=== PATIENT | female | born 1960 | race Two or more races ===

== ENCOUNTER 2017-10-15 18:31 | Inpatient (IN) | payer OTHER ==
[~2017-10-15] VITALS: Ht 149.9 cm; Wt 72.6 kg
[2017-10-15] MEDS ORDERED: NORCO 5-325 TA1 EACH ORAL (18:56)
[2017-10-15] MEDS ORDERED: COL-RITE100 MG PO (18:56)
[2017-10-15] MEDS ORDERED: CEPHALEXIN500 M1 ORAL (18:56)
[2017-10-15 19:00] VITALS: BP 108/64
[2017-10-15] MEDS ORDERED: Morphine Sulfate 4mg/ml Inj IVP ONE (19:00)
[2017-10-15] MEDS ORDERED: Ketorolac 30mg Inj IV ONE (19:00)
[2017-10-15 19:44] LABS: ANION GAP 7 mmol/L (5-15); BLOOD UREA NITROGEN 9 mg/dL (7-18); CALCIUM 8.2 MG/DL (8.5-10.1); CARBON DIOXIDE 27 MMOL/L (21-32); CHLORIDE 106 MMOL/L (98-107); CREATININE 0.7 MG/DL (0.55-1.30); POTASSIUM 3.1 MMOL/L (3.5-5.1); SODIUM 140 MMOL/L (136-145)
[2017-10-15 19:49] LABS: ALANINE AMINOTRANSFERASE 23 U/L (12-78); ALBUMIN/GLOBULIN RATIO 0.9 (1.0-2.7); ALKALINE PHOSPHATASE 74 U/L (46-116); ASPARTATE AMINO TRANSFERASE 25 U/L (15-37); BILIRUBIN,TOTAL 0.5 MG/DL (0.2-1.0)
[2017-10-15 19:58] VITALS: BP 104/68
[2017-10-15 20:10] LABS: BASOPHILS % (AUTO) 0.7 % (0.0-2.0); EOSINOPHILS % (AUTO) 0.5 % (0.0-3.0); HEMATOCRIT 28.8 % (37.0-47.0); HEMOGLOBIN 9.7 G/DL (12.0-16.0); MEAN CORPUSCULAR VOLUME 84 FL (80-99); MONOCYTES % (AUTO) 6.7 % (1.0-10.0); PLATELET COUNT 202 K/UL (150-450); RED BLOOD COUNT 3.45 M/UL (4.20-5.40); RED CELL DISTRIBUTION WIDTH 12.5 % (11.6-14.8); WHITE BLOOD COUNT 8.3 K/UL (4.8-10.8)
[2017-10-15 20:18] LABS: INR 1.1 (0.9-1.1)
--- NOTE | 2017-10-15 20:26 | Diagnostic Imaging Report ---
ADDENDUM - Added by Yair Fiscehr MD on 10/15/2017 8:31 PM (-07:00) Discussion with the ordering provider revealed that the patient had recent spinal surgery, given this history and in the absence of systemic more visible infection, this subcutaneous fluid collection could be considered normal postoperative appearance. EXAM: CT Lumbar Spine Without Intravenous Contrast CLINICAL HISTORY: PAIN TECHNIQUE: Axial computed tomography images of the lumbar spine without intravenous contrast. CTDI is 15.89 mGy and DLP is 413.25 mGy-cm. One or more of the following dose reduction techniques were used: automated exposure control, adjustment of the mA and/or kV according to patient size, use of iterative reconstruction technique. COMPARISON: No relevant prior studies available. FINDINGS: Vertebrae: Bilateral L5-S1 posterior stabilization with interbody spacer, no complication. Posterior L4 right hemilaminectomy and posterior L5 bilateral laminectomy. No acute fracture. Discs/spinal canal/neural foramina: Unremarkable limited evaluation of the spinal canal. No significant osseous spinal canal or foraminal stenosis. Soft tissues: Subcutaneous soft tissue midline ill-defined fluid collection with multiple focal internal gas extending from T12-L5. No surgical harry seen in the skin that would suggest this is an immediate postoperative study. No osseous destructive findings. Other findings: Unremarkable visualized abdominopelvic viscera. IMPRESSION: 1. L5-S1 stabilization hardware without complication and posterior decompressions as above. 2. Subcutaneous fluid collection in the midline described above with foci of gas, this could represent an infected fluid collection. Correlate with clinical presentation, particularly given the absence of immediate postoperative findings, and consider aspiration. 3. Unremarkable limited evaluation of the spinal canal, if there is concern for spinal canal pathology recommend MRI. [employer] 10/15/17 20:28 Call Doctor Regarding Other, called Dr Barraza on 10/15 20:28 (-07:00)
--- NOTE | 2017-10-15 21:22 | Emergency Room Report ---
History of Present Illness General Chief Complaint: Lower Back Pain or Injury Source: Patient Present Illness HPI Patient is 2 days status post fusion and stabilization of the lower back. She was riding in a car today and had severe low back pain that was not relieved by any measures. When she is not moving about she states the pain is better. She' s been taking Garrett to control the pain. She denies any incontinence, saddle numbness. There is some weakness and numbness down the left leg that is chronic prior to the surgery is not worsened at this time. No fevers, chills. Headache. + Nausea and poor appetite. No vomiting. No dysuria, hematuria. Allergies: Coded Allergies: No Known Allergies (Unverified , 10/15/17) Patient History Past Medical History: see triage record Social History: Denies: smoking, alcohol use Social History Narrative with her daughter Reviewed Nursing Documentation: PMH: Agreed; PSxH: Agreed Nursing Documentation-PMH Past Medical History: No History, Except For Review of Systems All Other Systems: negative except mentioned in HPI Physical Exam Vital Signs Date Time Temp Pulse Resp B/P (MAP) Pulse Ox O2 Delivery O2 Flow Rate FiO2 10/15/17 18:41 99.6 75 18 100/62 94 Room Air 99.7 Sp02 EP Interpretation: reviewed, normal General Appearance: well appearing, no apparent distress, GCS 15 Head: normocephalic, atraumatic Eyes: bilateral eye normal inspection, bilateral eye PERRL ENT: moist mucus membranes Neck: supple Respiratory: lungs clear, normal breath sounds Cardiovascular #1: regular rate, rhythm Cardiovascular #2: 2+ radial (R) Gastrointestinal: normal inspection, normal bowel sounds, non tender, no mass, non-distended Musculoskeletal: other - back brace in place, walks with limp L weak - TTP near area of operation Neurologic: alert, oriented x3, bellman III-XII nml as tested, DTRs symmetric, sensory intact, cerebellar normal, speech normal, motor weakness - L leg, but near normal Psychiatric: depressed affect Skin: normal color, other - surgical scar Medical Decision Making Diagnostic Impression: Primary Impression: Intractable back pain Additional Impression: Status post spinal surgery ER Course Patient presents with increased back pain after spinal surgery. Differential includes hematoma, infection, readjustment of surgical hardware, strain, contusion amongst others. Evaluation will be with EKG, labs, CT of the back. The patient will be treated with IV hydration and also analgesia. EKG without injury. Labs unremarkable. CT of back with air/edema, no hematoma. Difficult to evaluate CT with recent surgery. Possible infection. Patient is somewhat improved but with movement she still has significant pain. The patient is admitted to the hospital. She was discussed with Dr. Chen who agrees with admission. Laboratory Tests Test 10/15/17 19:23 White Blood Count 8.3 K/UL (4.8-10.8) Red Blood Count 3.45 M/UL (4.20-5.40) L Hemoglobin 9.7 G/DL (12.0-16.0) L Hematocrit 28.8 % (37.0-47.0) L Mean Corpuscular Volume 84 FL (80-99) Mean Corpuscular Hemoglobin 28.2 PG (27.0-31.0) Mean Corpuscular Hemoglobin Concent 33.7 G/DL (32.0-36.0) Red Cell Distribution Width 12.5 % (11.6-14.8) Platelet Count 202 K/UL (150-450) Mean Platelet Volume 6.1 FL (6.5-10.1) L Neutrophils (%) (Auto) 72.0 % (45.0-75.0) Lymphocytes (%) (Auto) 20.0 % (20.0-45.0) Monocytes (%) (Auto) 6.7 % (1.0-10.0) Eosinophils (%) (Auto) 0.5 % (0.0-3.0) Basophils (%) (Auto) 0.7 % (0.0-2.0) Prothrombin Time 11.3 SEC (9.30-11.50) Prothrombin Time INR 1.1 (0.9-1.1) PTT 32 SEC (23-33) Sodium Level 140 MMOL/L (136-145) Potassium Level 3.1 MMOL/L (3.5-5.1) L Chloride Level 106 MMOL/L (98-107) Carbon Dioxide Level 27 MMOL/L (21-32) Anion Gap 7 mmol/L (5-15) Blood Urea Nitrogen 9 mg/dL (7-18) Creatinine 0.7 MG/DL (0.55-1.30) Estimate Glomerular Filtration Rate > 60 mL/min (>60) Glucose Level 122 MG/DL (74-106) H Calcium Level 8.2 MG/DL (8.5-10.1) L Total Bilirubin 0.5 MG/DL (0.2-1.0) Aspartate Amino Transferase (AST) 25 U/L (15-37) Alanine Aminotransferase (ALT) 23 U/L (12-78) Alkaline Phosphatase 74 U/L (46-116) Total Protein 6.5 G/DL (6.4-8.2) Albumin 3.0 G/DL (3.4-5.0) L Globulin 3.5 g/dL Albumin/Globulin Ratio 0.9 (1.0-2.7) L EKG Diagnostic Results Rate: normal Rhythm: NSR ST Segments: no acute changes Rhythm Strip Diag. Results EP Interpretation: yes Rhythm: NSR, no PVC's, no ectopy CT/MRI/US Diagnostic Results CT/MRI/US Diagnostic Results : Imaging Test Ordered: lumbar spine Impression Postsurgical changes. There are and edema. No hematoma seen. Cannot exclude infectious etiology. Last Vital Signs Date Time Temp Pulse Resp B/P (MAP) Pulse Ox O2 Delivery O2 Flow Rate FiO2 10/15/17 19:50 99.4 10/15/17 18:41 75 18 100/62 94 Room Air Status: improved Disposition: ADMITTED INPATIENT Condition: Serious Referrals: NON PHYSICIAN (PCP) Gold Barraza M.D. Oct 15, 2017 21:22
[2017-10-15 22:00] VITALS: BP 110/72
[2017-10-15 22:45] VITALS: BP 109/69
[2017-10-15] MEDS: Docusate 100mg cap ORAL SCH (23:09)
[2017-10-15] MEDS ORDERED: Norco 5mg/325mg tab ORAL PRN (23:15)
[2017-10-16] VITALS: BP 128/80
[2017-10-16 04:00] VITALS: BP 92/59
[2017-10-16 06:54] LABS: ANION GAP 9 mmol/L (5-15); BLOOD UREA NITROGEN 9 mg/dL (7-18); CALCIUM 7.9 MG/DL (8.5-10.1); CARBON DIOXIDE 24 MMOL/L (21-32); CHLORIDE 109 MMOL/L (98-107); CREATININE 0.7 MG/DL (0.55-1.30); POTASSIUM 3.6 MMOL/L (3.5-5.1); SODIUM 142 MMOL/L (136-145)
[2017-10-16 08:00] VITALS: BP 132/80
--- NOTE | 2017-10-16 08:52 | Consultation ---
History of Present Illness General Date patient seen: Oct 16, 2017 Time patient seen: 08:10 Chief Complaint: Lower Back Pain. numbness right anterior thigh Referring physician: Nyasia Reason for Consultation: Back pain/ right thigh numbness s/p lumbar fusion Present Illness HPI Patient is a 57 y/o female who underwent lumbar decompression and fusion. Patient presented to the ED with back pain and feeling of numbness and tingling on the right anterior thigh. Patient denies any radiation of the pain to her lower extremities. she denies any fever, chills, incontinence, weakness, drainage from wound, or shortness of breath Allergies: Coded Allergies: No Known Allergies (Unverified , 10/15/17) Medication History Scheduled Cephalexin* (Cephalexin*), 500 MG ORAL EVERY 8 HOURS, (Reported) Scheduled PRN Hydrocodone Bit/Acetaminophen 5-325* ([place] 5-325*), 1 TAB ORAL Q4H PRN for For Pain, (Reported) Miscellaneous Medications Docusate Sodium (Col-Rite), 100 MG PO, (Reported) Patient History Healthcare decision maker Resuscitation status Full Code Advanced Directive on File Past Medical/Surgical History Past Medical/Surgical History: (1) Status post spinal surgery Physical Exam General Appearance: alert, overweight HEENT: normocephalic, PERRL, EOMI Neck: normal inspection Extremities: no calf tenderness Neurologic: first front ventilator II-XII grossly normal, alert, oriented x 3, responsive, no Babinski, motor weakness - 5/5 BUE and BLE, sensory deficit - light touch sensation is grossly intact. Last 24 Hour Vital Signs Date Time Temp Pulse Resp B/P (MAP) Pulse Ox O2 Delivery O2 Flow Rate FiO2 10/16/17 04:00 99.4 83 18 92/59 98 Room Air 99.4 10/16/17 00:00 98.7 78 18 128/80 98 Room Air 98.7 10/15/17 22:45 98.4 68 18 109/69 97 Room Air 98.4 10/15/17 22:00 98.9 74 18 110/72 98 Room Air 98.9 10/15/17 22:00 98.9 74 18 110/72 98 Room Air 98.8 10/15/17 19:58 98.8 77 18 104/68 98 Room Air 98.8 6/8/18 19:50 99.4 10/15/17 19:26 99.6 10/15/17 19:00 99.4 74 18 108/64 96 Room Air 99.4 10/15/17 19:00 99.4 10/15/17 18:41 99.6 75 18 100/62 94 Room Air 99.7 Intake and Output 10/15/17 10/16/17 19:00 07:00 Intake Total 0 ml 1120 ml Balance 0 ml 1120 ml Intake Oral 0 ml 120 ml IV Total 1000 ml # Voids 2 Laboratory Tests Test 10/15/17 19:23 10/16/17 06:12 White Blood Count 8.3 K/UL (4.8-10.8) Red Blood Count 3.45 M/UL (4.20-5.40) L Hemoglobin 9.7 G/DL (12.0-16.0) L Hematocrit 28.8 % (37.0-47.0) L Mean Corpuscular Volume 84 FL (80-99) Mean Corpuscular Hemoglobin 28.2 PG (27.0-31.0) Mean Corpuscular Hemoglobin Concent 33.7 G/DL (32.0-36.0) Red Cell Distribution Width 12.5 % (11.6-14.8) Platelet Count 202 K/UL (150-450) Mean Platelet Volume 6.1 FL (6.5-10.1) L Neutrophils (%) (Auto) 72.0 % (45.0-75.0) Lymphocytes (%) (Auto) 20.0 % (20.0-45.0) Monocytes (%) (Auto) 6.7 % (1.0-10.0) Eosinophils (%) (Auto) 0.5 % (0.0-3.0) Basophils (%) (Auto) 0.7 % (0.0-2.0) Prothrombin Time 11.3 SEC (9.30-11.50) Prothromb Time International Ratio 1.1 (0.9-1.1) Activated Partial Thromboplast Time 32 SEC (23-33) Sodium Level 140 MMOL/L (136-145) 142 MMOL/L (136-145) Potassium Level 3.1 MMOL/L (3.5-5.1) L 3.6 MMOL/L (3.5-5.1) Chloride Level 106 MMOL/L (98-107) 109 MMOL/L (98-107) H Carbon Dioxide Level 27 MMOL/L (21-32) 24 MMOL/L (21-32) Anion Gap 7 mmol/L (5-15) 9 mmol/L (5-15) Blood Urea Nitrogen 9 mg/dL (7-18) 9 mg/dL (7-18) Creatinine 0.7 MG/DL (0.55-1.30) 0.7 MG/DL (0.55-1.30) Estimat Glomerular Filtration Rate > 60 mL/min (>60) > 60 mL/min (>60) Glucose Level 122 MG/DL (74-106) H 134 MG/DL (74-106) H Calcium Level 8.2 MG/DL (8.5-10.1) L 7.9 MG/DL (8.5-10.1) L Total Bilirubin 0.5 MG/DL (0.2-1.0) Aspartate Amino Transf (AST/SGOT) 25 U/L (15-37) Alanine Aminotransferase (ALT/SGPT) 23 U/L (12-78) Alkaline Phosphatase 74 U/L (46-116) Total Protein 6.5 G/DL (6.4-8.2) Albumin 3.0 G/DL (3.4-5.0) L Globulin 3.5 g/dL Albumin/Globulin Ratio 0.9 (1.0-2.7) L Magnesium Level 2.0 MG/DL (1.8-2.4) Height (Feet): 4 Height (Inches): 11.00 Weight (Pounds): 160 Medications Current Medications Medications (Trade) Dose Ordered Sig/Sofya Route PRN Reason Start Time Stop Time Status Last Admin Dose Admin Acetaminophen/ Hydrocodone Bitart ([place] 5/325) 1 tab Q4H PRN ORAL Moderate Pain (Pain Scale 4-6) 10/15/17 23:15 10/22/17 23:14 Cefazolin Sodium 50 ml @ 100 mls/hr Q24HRS IV 10/16/17 08:30 10/23/17 08:29 UNV Docusate Sodium (Colace) 200 mg TWICE A DAY ORAL 10/15/17 23:09 11/14/17 23:08 Ondansetron HCl (Zofran) 4 mg Q6H PRN IVP Nausea & Vomiting 10/15/17 23:15 11/14/17 23:14 Potassium Chloride 100 ml @ 50 mls/hr ONCE ONCE IVPB 10/16/17 09:00 10/16/17 10:59 Objective Narrative Patient s/p lumbar fusion with back pain. Rec pain management. BLE doppler Cont abx PT/OT Assessment/Plan Status: stable - Rec, BLE dopplers Assessment/Plan Doppler of BLE Pain management Wound is C/D/I Abx X 24 hours PT/OT CHYNA CERVANTES M.D. Oct 16, 2017 08:52
[2017-10-16] MEDS: Docusate 100mg cap ORAL SCH (08:57)
[2017-10-16] MEDS ORDERED: ceFAZolin sod 1 GM in D5W 110 ML IVP SCH (09:00)
[2017-10-16] MEDS ORDERED: ceFAZolin 1gm/50ml Premix 50 ML IV SCH (09:00)
[2017-10-16 12:00] VITALS: BP 125/95
[2017-10-16] MEDS ORDERED: Tubing IV Secondary IV ONE (13:28)
[2017-10-16] MEDS ORDERED: NS 500ML ONE (13:28)
--- NOTE | 2017-10-16 13:32 | History and Physical ---
History of Present Illness General Date patient seen: Oct 16, 2017 Time patient seen: 13:29 Reason for Hospitalization: S/P COMPLEX SPINE SURGERY POST OPERATIVE PAIN Present Illness HPI this is an unfortuante female with injury had complex spine fusion has had a lot ofpain no nausea no vomiting admmited for further eval Allergies: Coded Allergies: No Known Allergies (Unverified , 10/15/17) Medication History Scheduled Cephalexin* (Cephalexin*), 500 MG ORAL EVERY 8 HOURS, (Reported) Scheduled PRN Hydrocodone Bit/Acetaminophen 5-325* ([place] 5-325*), 1 TAB ORAL Q4H PRN for For Pain, (Reported) Miscellaneous Medications Docusate Sodium (Col-Rite), 100 MG PO, (Reported) Patient History Limited by: other - speaks central african but daughter in the room and spke in central african and mongolian Healthcare decision maker Resuscitation status Full Code Advanced Directive on File Review of Systems Constitutional: Reports: no symptoms Gastrointestinal: Reports: no symptoms Genitourinary: Reports: no symptoms Physical Exam Physical Exam Narrative NC AT eomi no jvd cta s1,s2,rrr soft no rgr lumbar ther eis bialteral wound no drainge no edema both leg Last 24 Hour Vital Signs Date Time Temp Pulse Resp B/P (MAP) Pulse Ox O2 Delivery O2 Flow Rate FiO2 10/16/17 12:24 100.3 10/16/17 12:00 100.3 81 19 125/95 100 Room Air 100.3 10/16/17 08:00 99.9 86 19 132/80 99 Room Air 99.9 10/16/17 04:00 99.4 83 18 92/59 98 Room Air 99.4 10/16/17 00:00 98.7 78 18 128/80 98 Room Air 98.7 10/15/17 22:45 98.4 68 18 109/69 97 Room Air 98.4 10/15/17 22:00 98.9 74 18 110/72 98 Room Air 98.9 10/15/17 22:00 98.9 74 18 110/72 98 Room Air 98.8 10/15/17 19:58 98.8 77 18 104/68 98 Room Air 98.8 10/15/17 19:50 99.4 10/15/17 19:26 99.6 6/8/18 19:00 99.4 74 18 108/64 96 Room Air 99.4 10/15/17 19:00 99.4 10/15/17 18:41 99.6 75 18 100/62 94 Room Air 99.7 Intake and Output 10/15/17 10/16/17 19:00 07:00 Intake Total 0 ml 1120 ml Balance 0 ml 1120 ml Intake Oral 0 ml 120 ml IV Total 1000 ml # Voids 2 Laboratory Tests Test 10/15/17 19:23 10/16/17 06:12 White Blood Count 8.3 K/UL (4.8-10.8) Red Blood Count 3.45 M/UL (4.20-5.40) L Hemoglobin 9.7 G/DL (12.0-16.0) L Hematocrit 28.8 % (37.0-47.0) L Mean Corpuscular Volume 84 FL (80-99) Mean Corpuscular Hemoglobin 28.2 PG (27.0-31.0) Mean Corpuscular Hemoglobin Concent 33.7 G/DL (32.0-36.0) Red Cell Distribution Width 12.5 % (11.6-14.8) Platelet Count 202 K/UL (150-450) Mean Platelet Volume 6.1 FL (6.5-10.1) L Neutrophils (%) (Auto) 72.0 % (45.0-75.0) Lymphocytes (%) (Auto) 20.0 % (20.0-45.0) Monocytes (%) (Auto) 6.7 % (1.0-10.0) Eosinophils (%) (Auto) 0.5 % (0.0-3.0) Basophils (%) (Auto) 0.7 % (0.0-2.0) Prothrombin Time 11.3 SEC (9.30-11.50) Prothromb Time International Ratio 1.1 (0.9-1.1) Activated Partial Thromboplast Time 32 SEC (23-33) Sodium Level 140 MMOL/L (136-145) 142 MMOL/L (136-145) Potassium Level 3.1 MMOL/L (3.5-5.1) L 3.6 MMOL/L (3.5-5.1) Chloride Level 106 MMOL/L (98-107) 109 MMOL/L (98-107) H Carbon Dioxide Level 27 MMOL/L (21-32) 24 MMOL/L (21-32) Anion Gap 7 mmol/L (5-15) 9 mmol/L (5-15) Blood Urea Nitrogen 9 mg/dL (7-18) 9 mg/dL (7-18) Creatinine 0.7 MG/DL (0.55-1.30) 0.7 MG/DL (0.55-1.30) Estimat Glomerular Filtration Rate > 60 mL/min (>60) > 60 mL/min (>60) Glucose Level 122 MG/DL (74-106) H 134 MG/DL (74-106) H Calcium Level 8.2 MG/DL (8.5-10.1) L 7.9 MG/DL (8.5-10.1) L Total Bilirubin 0.5 MG/DL (0.2-1.0) Aspartate Amino Transf (AST/SGOT) 25 U/L (15-37) Alanine Aminotransferase (ALT/SGPT) 23 U/L (12-78) Alkaline Phosphatase 74 U/L (46-116) Total Protein 6.5 G/DL (6.4-8.2) Albumin 3.0 G/DL (3.4-5.0) L Globulin 3.5 g/dL Albumin/Globulin Ratio 0.9 (1.0-2.7) L Magnesium Level 2.0 MG/DL (1.8-2.4) Height (Feet): 4 Height (Inches): 11.00 Weight (Pounds): 160 Medications Current Medications Medications (Trade) Dose Ordered Sig/Sofya Route PRN Reason Start Time Stop Time Status Last Admin Dose Admin Acetaminophen/ Hydrocodone Bitart ([place] 5/325) 1 tab Q4H PRN ORAL Moderate Pain (Pain Scale 4-6) 10/15/17 23:15 10/22/17 23:14 10/16/17 12:24 Cefazolin Sodium 1 gm/Dextrose 110 ml @ 220 mls/hr Q24HRS IVP 10/16/17 09:00 10/23/17 08:59 10/16/17 10:23 Docusate Sodium (Colace) 200 mg TWICE A DAY ORAL 10/15/17 23:09 11/14/17 23:08 10/16/17 08:57 Ondansetron HCl (Zofran) 4 mg Q6H PRN IVP Nausea & Vomiting 10/15/17 23:15 11/14/17 23:14 Assessment/Plan Status Narrative s/p spine fusion doing well pt ot dc planning home estela holm Assessment/Plan ct shiowspostroperative changess TANMAY ZAMBRANO Oct 16, 2017 13:32
[2017-10-16 16:00] VITALS: BP 144/71
--- NOTE | 2017-10-18 12:23 | Discharge Summary ---
Trini Newell NP 10/18/17 1223: Discharge Summary Discharge Summary _ DATE OF ADMISSION: 10/15/2017 DATE OF DISCHARGE: 10/16/2017 REASON FOR ADMISSION: 57 years old female who recently undergone lumbar decompression and fusion, presented to emergency department with back pain and feeling of numbness and tingling in the right anterior thigh. Patient denied any radiation of the pain to her lower extremity ,she denied fever ,chills, incontinence ,weakness , drainage from the wound or shortness of breath. Upon evaluation in emergency room vital signs were stable, no fever . Laboratory workup revealed no leukocytosis , potassium- 3.1 hemoglobin- 9.7 hematocrit- 28.8. CT of the L-spine revealed hardware at L5-S1 without complication . Subcutaneous fluid collection in the midline with foci of gas. No hematoma. Patient admitted with diagnosis of status post recent lumbar decompression and fusion, postoperative pain CONSULTANTS: surgery Dr. Shanks HOSPITAL COURSE: Patient was admitted to medical surgical floor. Pain management was addressed. Pain was controlled. Venous duplex bilateral lower extremity revealed no evidence of acute DVT. Wound was clean, dry, and intact. Patient started working with physical and occupational therapy. Surgery consult was requested. Bowel regimen instituted. Surgeon recommended to start on IV antibiotics for 24 hours. Patient was on the IV hydration. Potassium was replaced. Patient was stable for discharge home, continue antibiotics and follow-up with surgeon as advised. Prescription for antibiotic and analgesic provided Due to the rapid and unexpected improvement in patient condition, the patient was discharged in one day. FINAL DIAGNOSES: Status post recent lumbar decompression and fusion Postoperative pain Hypokalemia , replaced DISCHARGE MEDICATIONS: See Medication Reconciliation list. DISCHARGE INSTRUCTIONS: Patient was discharged home. Outpatient follow-up with surgeon as advised. I have been assigned to dictate discharge summary for this account. I was not involved in the patient's management. Gold Chen MD 10/19/17 1346: Trini Newell NP Oct 18, 2017 12:23 Gold Chen MD Oct 19, 2017 13:46
--- NOTE | 2017-10-19 14:20 | Cardiology Report ---
APPROVED REPORT EKG Measurement Heart [id number] Normal sinus rhythm Normal ECG
== END 2017-10-16 17:56 | disposition home or self-care (01) | DRG 948 ==
LOC: EMR 18:58 → 3E 19:48 → EDBEDREQ 20:05
DX: G89.18 Other acute postprocedural pain (principal); Z98.1 Arthrodesis status; E87.6 Hypokalemia
CPT/HCPCS: 36415; 72131; 80048; 80053; 83735; 85025; 85610; 85730; 86850; 86900; 86901; 93005; 93970; 99285; J2405